=== PATIENT | male | born 1980 | race Two or more races ===

== ENCOUNTER 2022-12-04 11:57 | Emergency (ER) | payer OTHER ==
[~2022-12-04] VITALS: Ht 185.4 cm; Wt 90.7 kg
[2022-12-04] MEDS ORDERED: NEOMYCIN-BACITRACIN-POLYM UNITDOSE PKG TOP OINT TOP ONE (15:00)
[2022-12-04] MEDS ORDERED: TETANUS-DIPTH-ACEL PERTUSSIS 0.5ML SYR Tdap IM ONE (15:15)
[2022-12-04 15:29] VITALS: BP 140/97
== END 2022-12-04 15:44 | disposition home or self-care (01) ==
LOC: EEVIPCON 11:57 → ER 11:57
DX: S01.111A Laceration without foreign body of right eyelid and periocular area, initial encounter (principal); W51.XXXA Accidental striking against or bumped into by another person, initial encounter; Y93.89 Activity, other specified; Y92.89 Other specified places as the place of occurrence of the external cause; Y99.8 Other external cause status
CPT/HCPCS: 12011; 90471; 90715